=== PATIENT | female | born 1955 | race Caucasian/White ===

== ENCOUNTER → 2017-05-22 | Outpatient (CLI) | payer OTHER ==
[~2017-05-22] MED LIST: AMLO5TAB2 PO; ASPI-496 PO; ATOR80TA PO; ESTR1.25 PO; INSU100V5 SQ-INSULIN; ISOS30TA21 PO; METO-93 PO
== END | disposition home or self-care (01) ==
LOC: WOUND 08:18
PROVIDERS: ATTEND Internal Medicine
DX: S81.802D Unspecified open wound, left lower leg, subsequent encounter (principal); E11.9 Type 2 diabetes mellitus without complications; I25.10 Atherosclerotic heart disease of native coronary artery without angina pectoris; J44.9 Chronic obstructive pulmonary disease, unspecified; I10 Essential (primary) hypertension; E78.00 Pure hypercholesterolemia, unspecified; I87.2 Venous insufficiency (chronic) (peripheral); Z72.89 Other problems related to lifestyle; Z87.891 Personal history of nicotine dependence; X58.XXXD Exposure to other specified factors, subsequent encounter
CPT/HCPCS: 97597; 97598

== ENCOUNTER → 2017-05-29 | Outpatient (CLI) | payer OTHER | END | disposition home or self-care (01) | LOC: WOUND 09:22 | PROVIDERS: ATTEND Internal Medicine | DX: S91.002D Unspecified open wound, left ankle, subsequent encounter (principal); E11.8 Type 2 diabetes mellitus with unspecified complications; Z79.4 Long term (current) use of insulin; I87.2 Venous insufficiency (chronic) (peripheral); I25.10 Atherosclerotic heart disease of native coronary artery without angina pectoris; J44.9 Chronic obstructive pulmonary disease, unspecified; I10 Essential (primary) hypertension; Z72.89 Other problems related to lifestyle; E78.00 Pure hypercholesterolemia, unspecified; Z95.1 Presence of aortocoronary bypass graft; X58.XXXD Exposure to other specified factors, subsequent encounter | CPT/HCPCS: 97597; 97598 ==

== ENCOUNTER → 2017-06-04 | Outpatient (CLI) | payer OTHER | END | disposition home or self-care (01) | LOC: WOUND 14:52 | PROVIDERS: ATTEND Family Medicine | DX: I87.332 Chronic venous hypertension (idiopathic) with ulcer and inflammation of left lower extremity (principal); E11.622 Type 2 diabetes mellitus with other skin ulcer; L97.321 Non-pressure chronic ulcer of left ankle limited to breakdown of skin; I25.10 Atherosclerotic heart disease of native coronary artery without angina pectoris; J44.9 Chronic obstructive pulmonary disease, unspecified; E78.00 Pure hypercholesterolemia, unspecified; Z72.89 Other problems related to lifestyle; Z79.4 Long term (current) use of insulin; Z95.1 Presence of aortocoronary bypass graft; Z90.49 Acquired absence of other specified parts of digestive tract; Z87.891 Personal history of nicotine dependence | CPT/HCPCS: 97597 ==

== ENCOUNTER → 2017-06-11 | Outpatient (CLI) | payer OTHER | END | disposition home or self-care (01) | LOC: WOUND 13:47 | PROVIDERS: ATTEND Family Medicine | DX: I87.332 Chronic venous hypertension (idiopathic) with ulcer and inflammation of left lower extremity (principal); E11.622 Type 2 diabetes mellitus with other skin ulcer; L97.821 Non-pressure chronic ulcer of other part of left lower leg limited to breakdown of skin; I25.10 Atherosclerotic heart disease of native coronary artery without angina pectoris; J44.9 Chronic obstructive pulmonary disease, unspecified; E78.00 Pure hypercholesterolemia, unspecified; Z79.4 Long term (current) use of insulin; Z72.89 Other problems related to lifestyle; Z87.891 Personal history of nicotine dependence; Z95.1 Presence of aortocoronary bypass graft; Z90.49 Acquired absence of other specified parts of digestive tract | CPT/HCPCS: 97597 ==

== ENCOUNTER → 2017-06-18 | Outpatient (CLI) | payer OTHER | END | disposition home or self-care (01) | LOC: WOUND 13:45 | PROVIDERS: ATTEND Internal Medicine | DX: I87.332 Chronic venous hypertension (idiopathic) with ulcer and inflammation of left lower extremity (principal); I70.243 Atherosclerosis of native arteries of left leg with ulceration of ankle; E11.622 Type 2 diabetes mellitus with other skin ulcer; L97.321 Non-pressure chronic ulcer of left ankle limited to breakdown of skin; J44.9 Chronic obstructive pulmonary disease, unspecified; E78.00 Pure hypercholesterolemia, unspecified; Z79.4 Long term (current) use of insulin; Z72.89 Other problems related to lifestyle; Z87.891 Personal history of nicotine dependence; Z95.1 Presence of aortocoronary bypass graft; Z90.49 Acquired absence of other specified parts of digestive tract | CPT/HCPCS: 97597 ==

== ENCOUNTER → 2017-06-26 | Outpatient (CLI) | payer OTHER | END | disposition home or self-care (01) | LOC: WOUND 11:03 | PROVIDERS: ATTEND Internal Medicine | DX: I87.332 Chronic venous hypertension (idiopathic) with ulcer and inflammation of left lower extremity (principal); E11.622 Type 2 diabetes mellitus with other skin ulcer; L97.321 Non-pressure chronic ulcer of left ankle limited to breakdown of skin; J44.9 Chronic obstructive pulmonary disease, unspecified; E78.00 Pure hypercholesterolemia, unspecified; I25.10 Atherosclerotic heart disease of native coronary artery without angina pectoris; Z87.891 Personal history of nicotine dependence; Z95.1 Presence of aortocoronary bypass graft; Z90.49 Acquired absence of other specified parts of digestive tract; Z72.89 Other problems related to lifestyle; Z79.4 Long term (current) use of insulin | CPT/HCPCS: 97597 ==

== ENCOUNTER → 2017-07-10 | Outpatient (CLI) | payer OTHER | END | disposition home or self-care (01) | LOC: WOUND 10:57 | PROVIDERS: ATTEND Internal Medicine | DX: I87.332 Chronic venous hypertension (idiopathic) with ulcer and inflammation of left lower extremity (principal); E11.622 Type 2 diabetes mellitus with other skin ulcer; L97.822 Non-pressure chronic ulcer of other part of left lower leg with fat layer exposed; I70.243 Atherosclerosis of native arteries of left leg with ulceration of ankle; L97.321 Non-pressure chronic ulcer of left ankle limited to breakdown of skin; I25.10 Atherosclerotic heart disease of native coronary artery without angina pectoris; J44.9 Chronic obstructive pulmonary disease, unspecified; E78.00 Pure hypercholesterolemia, unspecified; I10 Essential (primary) hypertension; Z90.49 Acquired absence of other specified parts of digestive tract; Z87.891 Personal history of nicotine dependence; Z95.1 Presence of aortocoronary bypass graft; Z79.4 Long term (current) use of insulin; Z72.89 Other problems related to lifestyle | CPT/HCPCS: 29581 ==

== ENCOUNTER → 2017-07-16 | Outpatient (CLI) | payer OTHER | END | disposition home or self-care (01) | LOC: WOUND 10:44 | PROVIDERS: ATTEND Internal Medicine | DX: I87.332 Chronic venous hypertension (idiopathic) with ulcer and inflammation of left lower extremity (principal); E11.622 Type 2 diabetes mellitus with other skin ulcer; I70.243 Atherosclerosis of native arteries of left leg with ulceration of ankle; L97.822 Non-pressure chronic ulcer of other part of left lower leg with fat layer exposed; L97.321 Non-pressure chronic ulcer of left ankle limited to breakdown of skin; J44.9 Chronic obstructive pulmonary disease, unspecified; I10 Essential (primary) hypertension; E78.00 Pure hypercholesterolemia, unspecified; Z79.4 Long term (current) use of insulin; Z72.89 Other problems related to lifestyle; Z87.891 Personal history of nicotine dependence; Z95.1 Presence of aortocoronary bypass graft; Z90.49 Acquired absence of other specified parts of digestive tract | CPT/HCPCS: 99214 ==

== ENCOUNTER 2018-06-01 15:02 | Emergency (ER) | payer OTHER ==
[~2018-06-01] VITALS: Ht 162.6 cm; Wt 54.3 kg
[~2018-06-01 15:02] MED LIST changes: -AMLO5TAB2 PO; +AMLO5TAB7 PO
[2018-06-01 15:40] LABS: BASOPHILS # (AUTO) 0.08 x10^3/uL (0-0.1); BASOPHILS % (AUTO) 1 % (0-1); EOSINOPHILS # (AUTO) 0.27 x10^3/uL (0-0.4); EOSINOPHILS % (AUTO) 3 % (1-7); LYMPHOCYTES % (AUTO) 26 % (22-44); MD NO; MEAN CORPUSCULAR HEMOGLOBIN 32.8 pg (27.0-34.8); MEAN CORPUSCULAR HGB CONC 33.6 g/dL (32.4-35.8); MEAN CORPUSCULAR VOLUME 97.6 fL (80-100); MEAN PLATELET VOLUME 7.6 fL (7.4-10.4); MONOCYTES # (AUTO) 1.06 x10^3/uL (0.2-0.8); MONOCYTES % (AUTO) 10 % (2-9); NEUTROPHILS % (AUTO) 60 % (42-75); PLATELET COUNT 371 x10^3/uL (130-400); RED BLOOD COUNT 4.58 x10^6/uL (3.82-5.3)
[2018-06-01 15:52] LABS: ALANINE AMINOTRANSFERASE 47 U/L (12-78); ALBUMIN 3.9 g/dL (3.4-5.0)
[2018-06-01 16:06] LABS: ALKALINE PHOSPHATASE 131 U/L (45-117); BILIRUBIN,TOTAL 0.5 mg/dL (0.2-1.0); CHLORIDE 102 mmol/L (98-107); TOTAL PROTEIN 7.8 g/dL (6.4-8.2)
[2018-06-01 16:14] LABS: ANION GAP 8 mmol/L (5-15); CALCIUM 9.2 mg/dL (8.5-10.1)
[2018-06-01] MEDS ORDERED: ALBUTEROL SULFATE 2.5 MG/3 ML ONE (16:34)
[2018-06-01 16:50] VITALS: BP 153/74
[2018-06-01] MEDS ORDERED: ALBUTEROL SULFATE 2.5 MG/3 ML NPPB ONE (17:00)
== END 2018-06-01 17:24 | disposition home or self-care (01) ==
LOC: ED 17:09
DX: J44.1 Chronic obstructive pulmonary disease with (acute) exacerbation (principal); E78.00 Pure hypercholesterolemia, unspecified; I10 Essential (primary) hypertension; E11.9 Type 2 diabetes mellitus without complications
CPT/HCPCS: 36415; 71046; 80053; 85025; 93005; 94640; 99284; J7512

== ENCOUNTER 2018-06-04 20:19 | Emergency (ER) | payer OTHER ==
[~2018-06-04] VITALS: Ht 162.6 cm; Wt 54.0 kg
[2018-06-04 21:49] VITALS: BP 106/57
== END 2018-06-04 21:55 | disposition home or self-care (01) ==
LOC: ED 21:49
DX: J44.1 Chronic obstructive pulmonary disease with (acute) exacerbation (principal); E11.9 Type 2 diabetes mellitus without complications; I10 Essential (primary) hypertension; E78.00 Pure hypercholesterolemia, unspecified
CPT/HCPCS: 99283

== ENCOUNTER 2018-06-04 22:07 | Inpatient (IN) | payer OTHER ==
[~2018-06-04] VITALS: Ht 162.6 cm; Wt 59.1 kg
[~2018-06-04 22:07] MED LIST changes: +AMLO-150 PO; -AMLO5TAB7 PO
[2018-06-04] MEDS ORDERED: LIDOCAINE-MPF 1%, 5ML INFIL ONE (22:30)
[2018-06-04] MEDS ORDERED: SODIUM CHLORIDE FLUSH 10ML SYR IVF ONE (22:30)
[2018-06-04] MEDS ORDERED: LORazepam 2 MG/ML, 1ML IVPush ONE (22:30)
[2018-06-04] MEDS ORDERED: LORazepam 2 MG/ML, 1ML ONE (22:41)
[2018-06-04] MEDS ORDERED: LIDOCAINE-MPF 1%, 5ML ONE (22:48)
[2018-06-04 22:49] LABS: BASOPHILS # (AUTO) 0.03 x10^3/uL (0-0.1); BASOPHILS % (AUTO) 0 % (0-1); EOSINOPHILS % (AUTO) 0 % (1-7); LYMPHOCYTES # (AUTO) 0.88 x10^3/uL (1-3.4); LYMPHOCYTES % (AUTO) 11 % (22-44); MD NO; MEAN CORPUSCULAR HEMOGLOBIN 32.9 pg (27.0-34.8); MEAN CORPUSCULAR HGB CONC 33.5 g/dL (32.4-35.8); MEAN CORPUSCULAR VOLUME 98.3 fL (80-100); MEAN PLATELET VOLUME 7.7 fL (7.4-10.4); MONOCYTES # (AUTO) 0.06 x10^3/uL (0.2-0.8); MONOCYTES % (AUTO) 1 % (2-9); NEUTROPHILS % (AUTO) 88 % (42-75); PLATELET COUNT 391 x10^3/uL (130-400); RED BLOOD COUNT 4.68 x10^6/uL (3.82-5.3); RED CELL DISTRIBUTION WIDTH 12.9 % (9.6-15.2)
[2018-06-04 22:59] LABS: PROTHROMBIN TIME 10.6 Seconds (9.6-11.5)
[2018-06-04 23:00] LABS: ALANINE AMINOTRANSFERASE 56 U/L (12-78); ALBUMIN 3.6 g/dL (3.4-5.0); ANION GAP 16 mmol/L (5-15); CALCIUM 8.1 mg/dL (8.5-10.1); CHLORIDE 103 mmol/L (98-107); CREATININE 0.72 mg/dL (0.55-1.02)
[2018-06-04 23:04] LABS: ALKALINE PHOSPHATASE 120 U/L (45-117); BILIRUBIN,TOTAL 0.3 mg/dL (0.2-1.0); TOTAL PROTEIN 7.7 g/dL (6.4-8.2); TROPONIN I < 0.015 ng/mL (0.000-0.045)
[2018-06-04] MEDS ORDERED: OMNIPAQUE 350 MG/ML, 100ML BOTTLE ONE (23:49)
[2018-06-05] MEDS ORDERED: DOCUSATE 100 MG CAPSULE PO PRN (02:00)
[2018-06-05] MEDS ORDERED: ACETAMINOPHEN 325 MG TABLET PO PRN (02:00)
[2018-06-05] MEDS ORDERED: PROMETHAZINE 25 MG/ML, 1ML IM PRN (02:00)
[2018-06-05] MEDS ORDERED: GABAPENTIN 300 MG CAPSULE PO PRN (02:00)
[2018-06-05] MEDS ORDERED: LABETALOL 5MG/ML, 20ML IVPush PRN (02:00)
[2018-06-05] MEDS ORDERED: BISACODYL 10 MG SUPP PR PRN (02:00)
[2018-06-05] MEDS ORDERED: OXYcodone IR 5MG TABLET PO PRN (02:00)
[2018-06-05] MEDS ORDERED: ONDANSETRON 2MG/ML, 2ML IVPush PRN (02:00)
[2018-06-05] MEDS ORDERED: hydrALAzine 20 MG/ML, 1ML IVPush PRN (02:00)
[2018-06-05] MEDS ORDERED: ONDANSETRON ODT 4 MG PO PRN (02:00)
[2018-06-05] MEDS ORDERED: morphine SULFATE 10 MG/ML, 1ML IVPush PRN (02:00)
[2018-06-05] MEDS ORDERED: POLYETHYLENE GLYCOL 17 GM PACKET PO PRN (02:00)
[2018-06-05 02:02] VITALS: BP 135/60
[2018-06-05] MEDS: SODIUM CHLORIDE 0.9% 1,000 ML IV SCH ×3 (02:35→22:05)
[2018-06-05 02:43] LABS: HEMOGLOBIN A1C 8.5 % (4.2-6.3)
[2018-06-05 02:44] LABS: FREE T4 (FREE THYROXINE) 1.15 ng/dL (0.76-1.46); THYROID STIMULATING HORMONE 1.29 mIU/L (0.358-3.740)
[2018-06-05] MEDS: methylPREDNISolone SOD SUCC 125 MG/2 ML IVPush SCH ×4 (03:13→21:58)
[2018-06-05] MEDS: HEPARIN 5,000 UNITS/ML, 1ML SQ SCH ×3 (03:13→18:06)
[2018-06-05 03:34] LABS: MICROSCOPIC NOT IND
[2018-06-05 03:39] LABS: CULTURE INDICATED? NO
[2018-06-05] MEDS: INSULIN LISPRO 100 UNITS/ML, PEN SQ-INSULIN SCH ×5 (05:06→22:00)
[2018-06-05] MEDS ORDERED: ALBUTEROL SULFATE 2.5 MG/3 ML HHN SCH (06:00)
[2018-06-05 06:41] LABS: TROPONIN I < 0.015 ng/mL (0.000-0.045)
[2018-06-05] MEDS: ALBUTEROL SULFATE 2.5 MG/3 ML NPPB SCH ×4 (07:45→19:05)
[2018-06-05] MEDS: BUDESONIDE 0.5 MG/2 ML INHA NPPB SCH ×2 (07:45→19:05)
[2018-06-05 07:54] VITALS: BP 139/72
[2018-06-05] MEDS: ASPIRIN 81 MG TABLET CHEW PO SCH (08:19)
[2018-06-05] MEDS: METOPROLOL SUCCINATE 50 MG TAB.ER.24H PO SCH (08:20)
[2018-06-05] MEDS: ESTROGENS CONJUGATED 0.625 MG TABLET PO SCH (08:21)
[2018-06-05] MEDS ORDERED: BUDESONIDE 0.5 MG/2 ML INHA HHN SCH (09:00)
[2018-06-05] MEDS ORDERED: FLUTICASONE/VILANTEROL 100-25MCG/INH INH SCH (09:00)
[2018-06-05 09:14] LABS: TROPONIN I < 0.015 ng/mL (0.000-0.045)
[2018-06-05] MEDS ORDERED: INSULIN GLARGINE 100 UNITS/ML, PEN SQ-INSULIN SCH (09:30)
[2018-06-05] MEDS ORDERED: MAGNESIUM SULFATE PMX 2GM/50ML 50 ML IV ONE (10:00)
[2018-06-05 12:55] VITALS: BP 134/65
[2018-06-05 20:00] VITALS: BP 147/72
[2018-06-05] MEDS: MAGNESIUM CHLORIDE 64 MG TABLET.DR PO SCH (21:58)
[2018-06-05] MEDS: ATORVASTATIN 80 MG TABLET PO SCH (21:58)
[2018-06-05] MEDS: INSULIN GLARGINE 100 UNITS/ML, PEN SQ-INSULIN SCH (22:01)
[2018-06-06 00:32] VITALS: BP 146/74
[2018-06-06] MEDS: HEPARIN 5,000 UNITS/ML, 1ML SQ SCH ×3 (02:00→17:09)
[2018-06-06] MEDS: methylPREDNISolone SOD SUCC 125 MG/2 ML IVPush SCH ×4 (05:32→23:49)
[2018-06-06] MEDS: SODIUM CHLORIDE 0.9% 1,000 ML IV SCH (05:32)
[2018-06-06 05:46] LABS: BASOPHILS # (AUTO) 0.01 x10^3/uL (0-0.1); BASOPHILS % (AUTO) 0 % (0-1); EOSINOPHILS % (AUTO) 0 % (1-7); LYMPHOCYTES # (AUTO) 0.89 x10^3/uL (1-3.4); LYMPHOCYTES % (AUTO) 8 % (22-44); MD NO; MEAN CORPUSCULAR HEMOGLOBIN 32.4 pg (27.0-34.8); MEAN CORPUSCULAR HGB CONC 33.3 g/dL (32.4-35.8); MEAN CORPUSCULAR VOLUME 97.3 fL (80-100); MONOCYTES # (AUTO) 0.47 x10^3/uL (0.2-0.8); MONOCYTES % (AUTO) 4 % (2-9); NEUTROPHILS # (AUTO) 9.92 x10^3/uL (1.8-6.8); NEUTROPHILS % (AUTO) 88 % (42-75); PLATELET COUNT 315 x10^3/uL (130-400); RED BLOOD COUNT 4.37 x10^6/uL (3.82-5.3)
[2018-06-06 05:57] LABS: ALANINE AMINOTRANSFERASE 35 U/L (12-78); ALBUMIN 2.8 g/dL (3.4-5.0); ANION GAP 9 mmol/L (5-15); CALCIUM 7.3 mg/dL (8.5-10.1); CHLORIDE 105 mmol/L (98-107); CREATININE 0.43 mg/dL (0.55-1.02)
[2018-06-06 06:01] LABS: ALKALINE PHOSPHATASE 86 U/L (45-117); BILIRUBIN,TOTAL 0.5 mg/dL (0.2-1.0); CHOL/HDL RATIO 3.1; CHOLESTEROL, TOTAL 209 mg/dL (140-239); HDL CHOL % 33 % (28-40); HDL CHOLESTEROL (DIRECT) 68 mg/dL (40-60); LDL CHOLESTEROL,CALCULATED 115 mg/dL (54-169); LDL/HDL RATIO 1.7 (0.5-3.0); TOTAL PROTEIN 6.1 g/dL (6.4-8.2); TRIGLYCERIDES 132 mg/dL (50-200); VLDL CHOLESTEROL 26 mg/dL (0-25)
[2018-06-06] MEDS: ALBUTEROL SULFATE 2.5 MG/3 ML NPPB SCH ×4 (07:30→20:00)
[2018-06-06 07:42] VITALS: BP 152/76
[2018-06-06] MEDS ORDERED: POTASSIUM CHLORIDE 40 MEQ in SODIUM CHLORIDE 0.9% 500 ML IV ONE (08:00)
[2018-06-06] MEDS ORDERED: POTASSIUM CHLORIDE 20 MEQ TAB.ER.PRT PO ONE (09:30)
[2018-06-06] MEDS ORDERED: POTASSIUM PHOSPHATE 44 MEQ in SODIUM CHLORIDE 0.9% 500 ML IV ONE ×2 (09:30→12:00)
[2018-06-06] MEDS: METOPROLOL SUCCINATE 50 MG TAB.ER.24H PO SCH (09:39)
[2018-06-06] MEDS: ASPIRIN 81 MG TABLET CHEW PO SCH (09:39)
[2018-06-06] MEDS: MAGNESIUM CHLORIDE 64 MG TABLET.DR PO SCH ×2 (09:39→21:36)
[2018-06-06] MEDS: INSULIN LISPRO 100 UNITS/ML, PEN SQ-INSULIN SCH ×4 (09:40→21:37)
[2018-06-06] MEDS: ESTROGENS CONJUGATED 0.625 MG TABLET PO SCH (09:40)
[2018-06-06] MEDS: BUDESONIDE 0.5 MG/2 ML INHA NPPB SCH ×2 (11:40→21:00)
[2018-06-06 12:34] VITALS: BP 149/73
[2018-06-06] MEDS ORDERED: DILTIAZEM 5 MG/ML, 5ML IVPush ONE (13:00)
[2018-06-06] MEDS ORDERED: DILTIAZEM 125 MG in SODIUM CHLORIDE 0.9% 100 ML IV SCH (13:00)
[2018-06-06 20:00] VITALS: BP 147/77
[2018-06-06] MEDS: ATORVASTATIN 80 MG TABLET PO SCH (21:36)
[2018-06-06] MEDS: INSULIN GLARGINE 100 UNITS/ML, PEN SQ-INSULIN SCH (21:38)
[2018-06-07 00:41] VITALS: BP 145/69
[2018-06-07] MEDS: HEPARIN 5,000 UNITS/ML, 1ML SQ SCH ×2 (02:00→11:00)
[2018-06-07 06:18] LABS: ANION GAP 7 mmol/L (5-15); CALCIUM 7.3 mg/dL (8.5-10.1); CHLORIDE 106 mmol/L (98-107); CREATININE 0.45 mg/dL (0.55-1.02)
[2018-06-07] MEDS: ALBUTEROL SULFATE 2.5 MG/3 ML NPPB SCH ×3 (06:25→13:45)
[2018-06-07] MEDS: methylPREDNISolone SOD SUCC 125 MG/2 ML IVPush SCH ×2 (06:36→13:30)
[2018-06-07] MEDS ORDERED: POTASSIUM CHLORIDE 20 MEQ TAB.ER.PRT PO SCH (08:00)
[2018-06-07 08:46] VITALS: BP 149/73
[2018-06-07] MEDS: BUDESONIDE 0.5 MG/2 ML INHA NPPB SCH (09:00)
[2018-06-07] MEDS ORDERED: POTASSIUM CHLORIDE 20 MEQ TAB.ER.PRT PO ONE (09:30)
[2018-06-07] MEDS: METOPROLOL SUCCINATE 50 MG TAB.ER.24H PO SCH (09:31)
[2018-06-07] MEDS: ESTROGENS CONJUGATED 0.625 MG TABLET PO SCH (09:31)
[2018-06-07] MEDS: MAGNESIUM CHLORIDE 64 MG TABLET.DR PO SCH (09:31)
[2018-06-07] MEDS: ASPIRIN 81 MG TABLET CHEW PO SCH (09:31)
[2018-06-07] MEDS: INSULIN LISPRO 100 UNITS/ML, PEN SQ-INSULIN SCH ×2 (09:31→13:30)
[2018-06-07] MEDS ORDERED: PRED5TAB PO (12:10)
[2018-06-07] MEDS ORDERED: BUDE0.5A NPPB (12:10)
[2018-06-07] MEDS ORDERED: MAGN64TA7 PO (12:10)
[2018-06-07] MEDS ORDERED: POTA20TA6 PO (12:10)
[2018-06-07] MEDS ORDERED: ALBU2.5V NPPB (12:10)
[2018-06-07 13:05] VITALS: BP 155/83
== END 2018-06-07 15:34 | disposition home or self-care (01) | DRG 191 ==
LOC: ED 23:59 → EDIP 06-05 00:53 → 4EST 06-05 01:27 → DCLOUNGE 06-07 15:07
PROVIDERS: ADMIT Internal Medicine; ATTEND Internal Medicine
PROC: 0CQ0XZZ Repair Upper Lip, External Approach (ICD-10-PCS; principal; 2018-06-04)
DX: J44.1 Chronic obstructive pulmonary disease with (acute) exacerbation (principal); Q61.3 Polycystic kidney, unspecified; R55 Syncope and collapse; E87.6 Hypokalemia; I10 Essential (primary) hypertension; I25.10 Atherosclerotic heart disease of native coronary artery without angina pectoris; E78.5 Hyperlipidemia, unspecified; K57.30 Diverticulosis of large intestine without perforation or abscess without bleeding; N28.9 Disorder of kidney and ureter, unspecified; K76.0 Fatty (change of) liver, not elsewhere classified; E78.00 Pure hypercholesterolemia, unspecified; E55.9 Vitamin D deficiency, unspecified; E11.65 Type 2 diabetes mellitus with hyperglycemia; I95.9 Hypotension, unspecified; S01.511A Laceration without foreign body of lip, initial encounter; W17.89XA Other fall from one level to another, initial encounter; Y93.89 Activity, other specified; Y92.89 Other specified places as the place of occurrence of the external cause; Z90.49 Acquired absence of other specified parts of digestive tract; Z86.73 Personal history of transient ischemic attack (TIA), and cerebral infarction without residual deficits; Z87.891 Personal history of nicotine dependence; Z95.1 Presence of aortocoronary bypass graft; Y99.8 Other external cause status; Z88.8 Allergy status to other drugs, medicaments and biological substances; Z88.1 Allergy status to other antibiotic agents; Z88.5 Allergy status to narcotic agent; Z88.0 Allergy status to penicillin; Z91.013 Allergy to seafood
CPT/HCPCS: 12051; 36415; 99285; J7613; J7626; 70450; 70486; 71275; 72125; 74177; 80048; 80053; 80061; 81003; 82962; 83036; 83735; 84100; 84439; 84443; 84484; 85025; 85610; 85730; 90656; 93005; 93306; 93880; 94640; G0378; J1644; J3480; Q9967; J1815; J2060; J2930; J3475; J7030; J7040

== ENCOUNTER 2020-06-05 11:02 | Emergency (ER) | payer MEDICARE ==
[~2020-06-05] VITALS: Ht 160 cm; Wt 55.2 kg
[~2020-06-05 11:02] MED LIST changes: +ALBU2.5V NPPB; +BUDE0.5A NPPB; +MAGN64TA7 PO; +POTA20TA6 PO; +PRED5TAB PO
[2020-06-05 11:30] VITALS: BP 145/53
[2020-06-05 12:58] LABS: EOSINOPHILS % (AUTO) 0 % (1-7)
[2020-06-05 13:05] LABS: ALBUMIN 3.3 g/dL (3.4-5.0); ANION GAP 8 mmol/L (5-15); CALCIUM 8.6 mg/dL (8.5-10.1); CHLORIDE 106 mmol/L (98-107)
[2020-06-05 13:06] LABS: CREATININE 0.79 mg/dL (0.55-1.02)
[2020-06-05 13:15] LABS: BASOPHILS % (AUTO) 1 % (0-1); LYMPHOCYTES % (AUTO) 12 % (22-44); MEAN CORPUSCULAR HEMOGLOBIN 17.4 pg (27.0-34.8); MEAN PLATELET VOLUME 6.5 fL (7.4-10.4); MONOCYTES % (AUTO) 12 % (2-9); NEUTROPHILS % (AUTO) 75 % (42-75); PLATELET COUNT 561 x10^3/uL (130-400); RED BLOOD COUNT 4.48 x10^6/uL (3.82-5.3); RED CELL DISTRIBUTION WIDTH 19.7 % (9.6-15.2)
[2020-06-05 13:25] LABS: MD MORPH REVIEW ONLY
[2020-06-05 13:26] LABS: ANISOCYTOSIS 1+; HEMOGRAM NOTE RECHECKED; HYPOCHROMIA 2+; MICROCYTOSIS 2+
[2020-06-05 13:27] LABS: <PLATELET ESTIMATE> INCREASED; <PLT MORPHOLOGY> NORMAL PLT MORPH; OVALOCYTES 1+; TARGET CELLS 1+
--- NOTE | 2020-06-05 14:20 | NUR ---
PT NOT IN LOBBY.
== END 2020-06-05 14:26 | disposition left against medical advice (07) ==
LOC: ED 12:03
DX: R11.10 Vomiting, unspecified (principal); R06.02 Shortness of breath; R94.31 Abnormal electrocardiogram [ECG] [EKG]
CPT/HCPCS: 36415; 71045; 80048; 82040; 82962; 83605; 85025; 87040; 93005; 99285